=== PATIENT | female | born 1940 | race Caucasian/White ===

== ENCOUNTER 2020-01-27 08:54 | Inpatient (IN) | payer MEDICARE, OTHER ==
[~2020-01-27] VITALS: Ht 167.6 cm; Wt 135.3 kg
[2020-01-27] MEDS ORDERED: HYDROcodone-ACET 5/325MG TAB PO ONE (10:15)
[2020-01-27] MEDS ORDERED: MORPHINE SULF INJ 2 MG/ML SYRINGE 1ML IV ONE (12:15)
[2020-01-27] MEDS ORDERED: ONDANSETRON ODT 4 MG TAB PO ONE (12:15)
[2020-01-27] MEDS ORDERED: ONDANSETRON HCL 4 MG/2 ML VIAL IV ONE (13:00)
[2020-01-27 13:35] LABS: Basophils # (auto) 0.1 10 ^3/uL (0-0.2); Basophils % (auto) 0.5 % (0.0-2.0); Eosinophils # (auto) 0 10 ^3/uL (0-0.8); Eosinophils % (auto) 0.2 % (0.0-7.0); Hematocrit 45.1 % (36.0-46.0); Hemoglobin 14.9 g/dL (12.2-16.2); Lymphocytes % (auto) 6.4 % (10.0-50.0); Mean Corpuscular Hemoglobin 30.5 pg (28.0-32.0); Mean Corpuscular Volume 92.2 fL (80.0-100.0); Monocytes # (auto) 1.1 10 ^3/uL (0-1.3); Monocytes % (auto) 6.9 % (0.0-12.0); Neutrophils # (auto) 13.3 10 ^3/uL (1.6-8.6); Nucleated Red Blood Cells % 0.1 %; Platelet Count (auto) 231 10^3/uL (140-450); Red Blood Cells 4.89 10^6/uL (4.0-5.20); Red Cell Distribution Width 15.1 % (11.8-14.3); White Blood Cell 15.4 10^3/uL (4.4-10.8)
[2020-01-27 13:46] LABS: Albumin 3.5 g/dL (3.4-5.0); Calcium 8.9 mg/dL (8.5-10.1)
[2020-01-27 13:49] LABS: BUN/Creatinine Ratio 21.3; Bilirubin, Total 0.7 mg/dL (0.2-1.0); Total Protein 7.4 g/dL (6.4-8.2)
[2020-01-27 13:52] LABS: Potassium 2.9 mmol/L (3.5-5.1)
[2020-01-27 13:56] LABS: Partial Thromboplastin Time 47.4 sec (23.0-31.2)
[2020-01-27 13:59] LABS: INR 4.52 (0.9-1.15)
[2020-01-27] MEDS ORDERED: NITROGLYCERIN 0.4 MG SL TAB SL PRN (14:15)
[2020-01-27] MEDS: SODIUM CHLORIDE 0.9% 1,000 ML IV SCH (14:15)
[2020-01-27] MEDS ORDERED: POTASSIUM CHL 20 Meq TABLET PO ONE (14:15)
[2020-01-27] MEDS ORDERED: MORPHINE SULF INJ 2 MG/ML SYRINGE 1ML IV PRN ×2 (14:15→18:15)
[2020-01-27] MEDS ORDERED: POTASSIUM CHL 20MEQ/100ML 100 ML IV ONE (14:15)
--- NOTE | 2020-01-27 15:42 | NUR ---
MS admit from ER CAROLINAJETT admitted to tele/MS after SBAR received. Patient oriented to Ck daigle RN, unit, room, bed, and unit policies regarding patient care and visiting hours. Patient weighed by bedscale and encouraged to call if they need something. All questions and concerns addressed, patient verbalized understanding. Patient aaox4, pleasant and cooperative with diagnosis of right humerus fracture and disclocation.Admission assessment done and charted. Will continue to monitor patient
[2020-01-27 17:00] VITALS: BP 139/89
[2020-01-27 17:01] VITALS: BP 139/89
[2020-01-27] MEDS ORDERED: PRED-158 PO (18:08)
[2020-01-27] MEDS ORDERED: FURO40TA4 PO (18:08)
[2020-01-27] MEDS ORDERED: WARF3TAB22 PO (18:08)
[2020-01-27] MEDS ORDERED: POTA10TA51 PO (18:08)
[2020-01-27] MEDS ORDERED: LEVO25TA49 PO (18:08)
[2020-01-27] MEDS ORDERED: GABA-339 PO (18:08)
[2020-01-27] MEDS ORDERED: POTA10TA32 PO (18:26)
[2020-01-27] MEDS ORDERED: LEVO200T7 PO (18:26)
--- NOTE | 2020-01-27 19:00 | NUR ---
Opening Shift Note Assumed care of patient after receiving report. Patient is awake and alert with no S/S of distress/SOB or pain. Call light within reach, bed in lowest locked position, HOB semi fowlers. Instructed on POC and to call for assistance PRN, will continue to monitor for changes Q1hr and PRN.
--- NOTE | 2020-01-27 20:46 | NUR ---
Call from pharmacy Pharmacy called regarding INR of 4.52 and scheduled vitamin K fro 10:00 am on 01/28/20, pharmacy suggested one time dose of vitamin k. Will call
--- NOTE | 2020-01-27 20:55 | NUR ---
Called Dr. Matt regarding pharmacy's INR of 4.52. Left message with answering service. Awaiting call back for further instructions and additional orders. Will continue to monitor.
[2020-01-27 22:20] VITALS: BP 159/71
[2020-01-27 22:30] VITALS: BP 144/78
--- NOTE | 2020-01-27 22:30 | NUR ---
Elevated BP reassessment Patient had elevated BP of 159/71 and HR of 89, RN reassessed BP after position change with reading of 144/78 and HR 88. Patient is resting comfortably in bed at this time. No s/s of distress noted.
--- NOTE | 2020-01-27 23:29 | NUR ---
COVID swab collected and walked down to lab.
[2020-01-27] MEDS: MORPHINE SULF INJ 2 MG/ML SYRINGE 1ML IV PRN (23:50)
[2020-01-28] MEDS: SODIUM CHLORIDE 0.9% 1,000 ML IV SCH ×2 (04:53→18:04)
[2020-01-28 05:10] VITALS: BP 142/72
[2020-01-28 05:50] LABS: INR 4.73 (0.9-1.15)
[2020-01-28] MEDS: MORPHINE SULF INJ 2 MG/ML SYRINGE 1ML IV PRN ×2 (06:12→15:07)
--- NOTE | 2020-01-28 06:39 | NUR ---
[facility] Hospitalist Re: INR Received critical lab value for INR of 4.73, previously was 4.52. First scheduled dose of Vit. K at 10:00 01/28/20.
[2020-01-28 08:00] VITALS: BP 158/71
[2020-01-28] MEDS ORDERED: PHYTONADIONE(VitK) ORAL Susp 10mg/10ml(1mg/ml) PO SCH (10:00)
[2020-01-28 10:32] LABS: Basophils # (auto) 0.1 10 ^3/uL (0-0.2); Basophils % (auto) 0.6 % (0.0-2.0); Eosinophils # (auto) 0 10 ^3/uL (0-0.8); Eosinophils % (auto) 0.4 % (0.0-7.0); Hematocrit 37.3 % (36.0-46.0); Hemoglobin 12.4 g/dL (12.2-16.2); Lymphocytes # (auto) 1.3 10 ^3/uL (0.4-5.4); Lymphocytes % (auto) 12.1 % (10.0-50.0); Mean Corpuscular Hemoglobin 30.9 pg (28.0-32.0); Mean Corpuscular Hgb Conc. 33.2 g/dL (32.0-36.0); Mean Corpuscular Volume 93.1 fL (80.0-100.0); Monocytes # (auto) 0.9 10 ^3/uL (0-1.3); Monocytes % (auto) 8.5 % (0.0-12.0); Neutrophils # (auto) 8.1 10 ^3/uL (1.6-8.6); Neutrophils % (auto) 78.4 % (37.0-80.0); Nucleated Red Blood Cells % 0.1 %; Platelet Count (auto) 207 10^3/uL (140-450); Red Cell Distribution Width 15.1 % (11.8-14.3); White Blood Cell 10.3 10^3/uL (4.4-10.8)
[2020-01-28 10:42] LABS: Potassium 3.6 mmol/L (3.5-5.1)
[2020-01-28 10:48] LABS: BUN/Creatinine Ratio 17.9; Calcium 7.9 mg/dL (8.5-10.1)
[2020-01-28 11:05] LABS: INR 4.73 (0.9-1.15)
--- NOTE | 2020-01-28 11:10 | NUR ---
Critical INR Laboratory phoned about INR 12.73. Dr. Mcgee notified of result. No new order made by at this time.
[2020-01-28 12:00] VITALS: BP 148/70
--- NOTE | 2020-01-28 13:00 | NUR ---
AMY SOUZA APPLIED SPLINT TO PATIENT'S RIGHT SHOULDER WITH TENTER AND PATIENT TOLERATED IT WELL.
[2020-01-28 17:00] VITALS: BP 143/60
--- NOTE | 2020-01-28 19:25 | NUR ---
Received report from the Day Shift RN Ck. Initial assessment done. Pt. in bed resting with Right Upper arm cast and sling keeping this part immobile. Pt. alert, awake, oriented x 3-4 and is cooperative to the nsg. staff.
[2020-01-28 20:00] VITALS: BP 144/65
--- NOTE | 2020-01-28 20:00 | NUR ---
Complete assessment done.
[2020-01-28 22:00] VITALS: BP 144/65
--- NOTE | 2020-01-28 23:00 | NUR ---
Pt. calm, quiet and sleeping. IVF of NS @ 75 ml./hr. continuous @ the [facility] G # 20.
--- NOTE | 2020-01-29 02:00 | NUR ---
Pt. provided bedside nsg.care. Pt. keep safe and canoe inspector final bed. Call-light within pt.' reach.
--- NOTE | 2020-01-29 04:30 | NUR ---
Pt. sleeping and awakens intermittently. Pt. watching TV when awakened. Enjoys TV shows.
[2020-01-29 05:00] VITALS: BP 147/71
[2020-01-29 06:37] LABS: Basophils # (auto) 0.1 10 ^3/uL (0-0.2); Basophils % (auto) 0.5 % (0.0-2.0); Eosinophils # (auto) 0 10 ^3/uL (0-0.8); Eosinophils % (auto) 0.3 % (0.0-7.0); Hematocrit 33.9 % (36.0-46.0); Hemoglobin 11.5 g/dL (12.2-16.2); Lymphocytes % (auto) 8.5 % (10.0-50.0); Mean Corpuscular Hemoglobin 30.9 pg (28.0-32.0); Mean Corpuscular Hgb Conc. 33.7 g/dL (32.0-36.0); Mean Corpuscular Volume 91.5 fL (80.0-100.0); Monocytes # (auto) 1.1 10 ^3/uL (0-1.3); Neutrophils % (auto) 81.7 % (37.0-80.0); Platelet Count (auto) 191 10^3/uL (140-450); Red Blood Cells 3.71 10^6/uL (4.0-5.20); White Blood Cell 12.3 10^3/uL (4.4-10.8)
[2020-01-29 06:53] LABS: INR 1.25 (0.9-1.15)
[2020-01-29] MEDS: SODIUM CHLORIDE 0.9% 1,000 ML IV SCH (06:58)
[2020-01-29 07:02] LABS: Calcium 7.9 mg/dL (8.5-10.1); Potassium 3.7 mmol/L (3.5-5.1)
[2020-01-29 07:05] LABS: BUN/Creatinine Ratio 18.2
[2020-01-29 08:00] VITALS: BP 164/86
[2020-01-29 12:00] VITALS: BP 167/84
--- NOTE | 2020-01-29 16:57 | NUR ---
PATIENT DISCHARGED HOME WITH SON. PATIENT NON-TELEMETRY. ALL IV ACCESS DISCONTINUED. ALL DISCHARGE PAPERWORK SIGNED. ALL DISCHARGE INSTRUCTIONS GIVEN
== END 2020-01-29 16:55 | disposition home or self-care (01) | DRG 563 ==
LOC: EDBD 08:54 → ER 08:54 → OVERFLOW 08:55 → CENTRAL 16:27
PROVIDERS: ATTEND Internal Medicine Pulmonary Disease
DX: S42.251A Displaced fracture of greater tuberosity of right humerus, initial encounter for closed fracture (principal); M25.00 Hemarthrosis, unspecified joint; E87.6 Hypokalemia; W01.0XXA Fall on same level from slipping, tripping and stumbling without subsequent striking against object, initial encounter; I10 Essential (primary) hypertension; Z86.711 Personal history of pulmonary embolism; Y93.89 Activity, other specified; Y92.89 Other specified places as the place of occurrence of the external cause; Y99.8 Other external cause status; Z20.828 Contact with and (suspected) exposure to other viral communicable diseases; Z79.899 Other long term (current) drug therapy; E03.9 Hypothyroidism, unspecified
CPT/HCPCS: 36415; 71045; 73030; 73060; 73080; 73200; 80048; 80053; 85025; 85610; 85730; 86850; 86900; 86901; 93005; 93306; G0378; J2405; J3480

== ENCOUNTER 2020-02-29 17:02 | Inpatient (IN) | payer MEDICARE, OTHER ==
[~2020-02-29] VITALS: Ht 160 cm; Wt 128.9 kg
[~2020-02-29 17:02] MED LIST: FURO40TA4 PO; LEVO200T7 PO; POTA10TA32 PO; PRED-158 PO; WARF3TAB22 PO
[2020-02-29 20:30] LABS: Basophils # (auto) 0.1 10 ^3/uL (0-0.2); Basophils % (auto) 1.2 % (0.0-2.0); Eosinophils # (auto) 0.3 10 ^3/uL (0-0.8); Hematocrit 44.1 % (36.0-46.0); Hemoglobin 14.5 g/dL (12.2-16.2); Lymphocytes # (auto) 1.6 10 ^3/uL (0.4-5.4); Lymphocytes % (auto) 19.7 % (10.0-50.0); Mean Corpuscular Hemoglobin 30.3 pg (28.0-32.0); Mean Corpuscular Hgb Conc. 32.8 g/dL (32.0-36.0); Mean Corpuscular Volume 92.1 fL (80.0-100.0); Monocytes # (auto) 0.7 10 ^3/uL (0-1.3); Monocytes % (auto) 8.4 % (0.0-12.0); Neutrophils # (auto) 5.6 10 ^3/uL (1.6-8.6); Neutrophils % (auto) 67.7 % (37.0-80.0); Platelet Count (auto) 350 10^3/uL (140-450); Red Blood Cells 4.78 10^6/uL (4.0-5.20); Red Cell Distribution Width 16.4 % (11.8-14.3); White Blood Cell 8.3 10^3/uL (4.4-10.8)
[2020-02-29 20:47] LABS: INR 3.49 (0.9-1.15); Partial Thromboplastin Time 48.7 sec (23.0-31.2)
[2020-02-29 20:48] LABS: Albumin 2.7 g/dL (3.4-5.0); BUN/Creatinine Ratio 15.1; Calcium 8.8 mg/dL (8.5-10.1); Potassium 3.3 mmol/L (3.5-5.1)
[2020-02-29 20:51] LABS: Bilirubin, Total 0.9 mg/dL (0.2-1.0); Total Protein 7.9 g/dL (6.4-8.2)
[2020-02-29 22:00] VITALS: BP 142/65
[2020-02-29] MEDS ORDERED: PIPERACILLIN-TAZOB 3.375GM 100 ML IV ONE (22:30)
[2020-02-29] MEDS ORDERED: ACETAMINOPHEN 325 MG TAB PO PRN (23:30)
[2020-02-29] MEDS ORDERED: ONDANSETRON HCL 4 MG/2 ML VIAL IV PRN (23:30)
[2020-02-29] MEDS ORDERED: DOCUSATE SOD 100 MG CAP PO PRN (23:30)
[2020-03-01] MEDS: SODIUM CHLORIDE 0.9% 1,000 ML IV SCH ×3 (00:05→14:02)
--- NOTE | 2020-03-01 01:53 | NUR ---
MS admit from ER [place]OL[place]JETT admitted to tele/MS. Patient oriented to primary RN, unit, room, bed, and unit policies regarding patient care and visiting hours.Patient weighed by bed scale and encouraged to call if they need something. No s/s of distress/SOB. Fall and safety precautions in place. Call light within reach and able to use. Patient has personal wheelchair at bedside. Bedside commode placed at bedside. All questions and concerns addressed, patient verbalized understanding and in agreement. Will continue to monitor q1h and prn.
[2020-03-01 02:20] VITALS: BP 142/65
[2020-03-01] MEDS: HYDROcodone-ACET 5/325MG TAB PO PRN ×3 (02:26→15:25)
--- NOTE | 2020-03-01 03:00 | NUR ---
IV removal IV DC'd due to leaking with clean sterile technique, catheter fully intact. Pressure dressing applied to site. Patient tolerated well.
--- NOTE | 2020-03-01 03:20 | NUR ---
IV insertion IV access obtained, via clean sterile technique by inserting 22 gauge catheter at left forearm on first attempt. IV secured properly. No trauma to site. Patient tolerated well.
[2020-03-01] MEDS ORDERED: CYCL0.05 EACHEYE (03:37)
[2020-03-01 05:00] VITALS: BP 119/57
[2020-03-01] MEDS: PIPERACILLIN-TAZOB 3.375GM 100 ML IV SCH ×3 (05:29→21:46)
--- NOTE | 2020-03-01 07:35 | NUR ---
Opening shift note Assumed care of patient from NOC GABRIELLE Renee. Patient is Aox4 no s/s of SOB or distress noted. Bed is in lowest locked position, call light is within reach and side rails are up x2. Updated patient on plan of care and patient verbalized understanding. Will continue to monitor q1hr and PRN.
[2020-03-01 09:00] VITALS: BP_SYST 121; BP_SYST 134; BP_DIAS 71; BP_DIAS 87
[2020-03-01 09:51] LABS: Basophils # (auto) 0.1 10 ^3/uL (0-0.2); Eosinophils # (auto) 0.2 10 ^3/uL (0-0.8); Eosinophils % (auto) 2.8 % (0.0-7.0); Hematocrit 43.8 % (36.0-46.0); Hemoglobin 13.8 g/dL (12.2-16.2); Lymphocytes # (auto) 1.2 10 ^3/uL (0.4-5.4); Lymphocytes % (auto) 16.9 % (10.0-50.0); Mean Corpuscular Hgb Conc. 31.4 g/dL (32.0-36.0); Mean Corpuscular Volume 92.5 fL (80.0-100.0); Monocytes # (auto) 0.9 10 ^3/uL (0-1.3); Neutrophils # (auto) 4.6 10 ^3/uL (1.6-8.6); Neutrophils % (auto) 66.3 % (37.0-80.0); Nucleated Red Blood Cells % 0.1 %; Platelet Count (auto) 280 10^3/uL (140-450); Red Blood Cells 4.74 10^6/uL (4.0-5.20); Red Cell Distribution Width 16.8 % (11.8-14.3); White Blood Cell 6.9 10^3/uL (4.4-10.8)
[2020-03-01 10:10] LABS: BUN/Creatinine Ratio 17.5; Calcium 7.3 mg/dL (8.5-10.1); Potassium 3.1 mmol/L (3.5-5.1)
--- NOTE | 2020-03-01 11:30 | NUR ---
WOUND CARE NOTE: IN TO SEE PATIENT AT THIS TIME PER WOUND CARE CONSULT REQUEST. PATIENT RECENTLY ADMITTED TO [facility] WITH DIAGNOSIS OF R ARM HUMERUS FX, ABSCESS. PATIENT HAS CURRENT JOCELYNN SCORE OF 16. SKIN/WOUND CARE PLAN IMPLEMENTED. PATIENT STATES THAT SHE FRACTURED HER RIGHT ARM IN EARLY JANUARY. FRACTURE WAS NOT SURGICALLY REPAIRED, SHE WAS SENT HOME WITH A HARD PLASTIC BRACE/CAST. PATIENT WAS RENDERED WITH A WOUND IN THE RIGHT AXILLARY AREA FROM FRICTION/PRESSURE OF THE PLASTIC BRACE. REMOVED BRACE. PATIENT IS IN TOO MUCH PAIN TO MOVE ARM UP HIGH ENOUGH TO GET A GOOD ASSESSMENT OF AREA. PHOTOGRAPHED WOUND FOR REFERENCE. THERE IS DRAINAGE, APPEARS TO BE SEROUS. CLEANSED WITH WOUND CLEANSER, PATTED DRY WITH STERILE GAUZE. APPLIED THERAHONEY, OPTIFOAM, ABD PAD TO COVER, PROTECT, AND PAD AREA. THERE IS A SURGICAL/ORTHO CONSULT PENDING. RECOMMEND: EOD/PRN DRESSING CHANGE TO WOUND ON RIGHT AXILLA, SKIN/WOUND CARE PLAN, CONTINUED MONITORING BY WOUND CARE TEAM. Addendum: 03/01/20 at 1603 by Lizette Onofre RN Amended: Links added.
[2020-03-01 13:00] VITALS: BP_SYST 137; BP_SYST 147; BP_DIAS 58; BP_DIAS 86
--- NOTE | 2020-03-01 13:00 | NUR ---
Paged Pageadilson Reyes regarding pain. Awaiting call back.
[2020-03-01] MEDS ORDERED: POTASSIUM CHL 20 Meq TABLET PO ONE (13:30)
--- NOTE | 2020-03-01 16:00 | NUR ---
PT REPORTS THAT SHE HAS BEEN WALKING FINE IN ROOM AND MURO NOT NEED P.T. INTERVENTION.
--- NOTE | 2020-03-01 16:45 | NUR ---
paged Pageadilson Reyes regarding pain. Awaiting call back.
[2020-03-01 17:00] VITALS: BP 135/68
--- NOTE | 2020-03-01 17:00 | NUR ---
Pain assessment Patient stated "I am still in pain, I am still at 8/10". Will call for higher level of pain medication. Will continue to monitor.
--- NOTE | 2020-03-01 17:31 | NUR ---
paged economic analyst placed page to economic analyst hospitalist. Awaiting call back.
--- NOTE | 2020-03-01 17:33 | NUR ---
Received call back Received call back from Dr. Jurado. New order received. Will follow through.
[2020-03-01] MEDS ORDERED: MORPHINE SULF INJ 2 MG/ML SYRINGE 1ML IV ONE (17:45)
--- NOTE | 2020-03-01 18:14 | NUR ---
patient reassessment Patient was reassessed for pain, patient stated now being at a pain level of 5/10. Stated "I feel a lot better, I do not want something for pain right now, I want to eat." Will continue to monitor.
--- NOTE | 2020-03-01 19:15 | NUR ---
end of shift note Endorsed care to noc GABRIELLE Daley. No s/s of distress noted.
[2020-03-01 22:00] VITALS: BP 139/70
--- NOTE | 2020-03-02 03:10 | NUR ---
IV removal IV DC'd due to infiltration. Dc'd with sterile technique, catheter fully intact. Pressure dressing applied to site. Patient tolerated procedure well.
--- NOTE | 2020-03-02 03:18 | NUR ---
IV insertion IV access obtained, via clean sterile technique by inserting 22 gauge catheter at left hand after 1 attempt. IV secured properly. No trauma to site. Patient tolerated procedure well.
[2020-03-02 05:00] VITALS: BP 134/64
[2020-03-02] MEDS: PIPERACILLIN-TAZOB 3.375GM 100 ML IV SCH ×3 (06:19→21:33)
[2020-03-02] MEDS: SODIUM CHLORIDE 0.9% 1,000 ML IV SCH ×2 (06:33→18:06)
--- NOTE | 2020-03-02 07:25 | NUR ---
Opening shift note Assumed care of patient from NOC RN Edi. Patient is Aox4 no s/s of SOB or distress noted. Bed is in lowest locked position, call light is within reach and side rails are up x2. Updated patient on plan of care and patient verbalized understanding. Will continue to monitor q1hr and PRN.
[2020-03-02 09:00] VITALS: BP 128/71
--- NOTE | 2020-03-02 09:30 | NUR ---
Dressing Changed Dressing changed, patient tolerated procedure well. Will continue to monitor.
[2020-03-02 10:40] LABS: INR 2.85 (0.9-1.15)
[2020-03-02 10:41] LABS: BUN/Creatinine Ratio 11.6; Calcium 8.3 mg/dL (8.5-10.1); Magnesium 2.5 mg/dL (1.6-2.6); Potassium 3.3 mmol/L (3.5-5.1)
[2020-03-02 13:00] VITALS: BP 106/51
--- NOTE | 2020-03-02 13:43 | NUR ---
called Doctors office Called Dr. Liz office, per Susannah Matt is not in this office and to try to contact him at his other office. The number is [phone].
[2020-03-02] MEDS ORDERED: MORPHINE SULF INJ 2 MG/ML SYRINGE 1ML IV PRN (13:45)
--- NOTE | 2020-03-02 13:46 | NUR ---
Called office Called sports medicine and orthopedic office. Left message with [facility] receptionist assistant.
[2020-03-02 17:00] VITALS: BP 128/69
--- NOTE | 2020-03-02 17:36 | NUR ---
Orthopedics at bedside Louie with orthopedics at bedside assessing immobilizer. New orders received. Per Louie he will consult with Dr. Blevins regarding immobilizer.
--- NOTE | 2020-03-02 18:50 | NUR ---
End of shift note Endorsed care to NOC RN Rebekah. No s/s of distress noted.
--- NOTE | 2020-03-02 21:10 | NUR ---
Received a call from patients daughter "Bernie" who states pt wants to go home. F/u with pt who states "this place is scary" and does not want to stay. Pt is alert and oriented x4. Pt informed of risks and benefits of leaving. Pt verbalized understanding. CN notified, resource nurse notified. Pt was unable to sign AMA form so 2 nurses signed. IV removed, canula intact, site free from s/s. Pt is currently waiting for daughter to arrive to pick her up.
--- NOTE | 2020-03-02 22:00 | NUR ---
Pt taken out via w/c in stable condition to family, with all belongings. Pt is aware that is she is having recurring symptoms to go to the ER.
[2020-03-03] MEDS ORDERED: FUROSEMIDE 40 MG TAB PO SCH (10:00)
== END 2020-03-02 22:00 | disposition left against medical advice (07) | DRG 603 ==
LOC: ER 17:02 → OVERFLOW 17:03 → WEST WING 03-01 02:06
PROVIDERS: ADMIT Hospitalist; ATTEND Internal Medicine Pulmonary Disease
DX: L02.411 Cutaneous abscess of right axilla (principal); E03.9 Hypothyroidism, unspecified; E87.6 Hypokalemia; I11.0 Hypertensive heart disease with heart failure; I50.9 Heart failure, unspecified; J44.9 Chronic obstructive pulmonary disease, unspecified; Z86.711 Personal history of pulmonary embolism; Z90.710 Acquired absence of both cervix and uterus; Z90.49 Acquired absence of other specified parts of digestive tract; L89.899 Pressure ulcer of other site, unspecified stage; Z53.29 Procedure and treatment not carried out because of patient's decision for other reasons; S42.201D Unspecified fracture of upper end of right humerus, subsequent encounter for fracture with routine healing
CPT/HCPCS: 36415; 73060; 73200; 80048; 80053; 83605; 83735; 84443; 85025; 85610; 85730; 87040; 87081; 87205; G0378; J2543

== ENCOUNTER 2020-03-04 15:25 | Inpatient (IN) | payer MEDICARE, OTHER ==
[~2020-03-04] VITALS: Ht 160 cm; Wt 121.8 kg
[~2020-03-04 15:25] MED LIST changes: +CYCL0.05 EACHEYE
--- NOTE | 2020-03-04 15:45 | NUR ---
Direct Admit Note JETT FIGUEROA admitted to Telemetry/MS unit as a direct admit per MD order. Patient oriented to Ck daigle RN, unit, room, bed, and unit policies regarding patient care and visiting hours. Patient weighed by bedscale and encouraged to call if they need something. All questions and concerns addressed, patient verbalized understanding. MD notified of patients arrival and admit orders received.
[2020-03-04] MEDS ORDERED: VANCOMYCIN PER PHARMACY 0 MG IV SCH (16:00)
[2020-03-04] MEDS ORDERED: ALUM & MAG HYDROX-SIMETH LIQ(MAALOX) 30 ML PO PRN (16:00)
[2020-03-04] MEDS ORDERED: ACETAMINOPHEN 325 MG TAB PO PRN (16:00)
[2020-03-04] MEDS ORDERED: HYDROcodone-ACET 5/325MG TAB PO PRN (16:00)
[2020-03-04] MEDS ORDERED: HYDROmorphone HCL 2 MG/ML VL IV PRN (16:00)
[2020-03-04] MEDS ORDERED: MORPHINE SULF INJ 2 MG/ML SYRINGE 1ML IV PRN ×2 (16:00)
[2020-03-04] MEDS ORDERED: LORazepam 0.5 MG TAB PO PRN (16:00)
[2020-03-04] MEDS ORDERED: ONDANSETRON HCL 4 MG/2 ML VIAL IV PRN (16:00)
[2020-03-04] MEDS ORDERED: NITROGLYCERIN 0.4 MG SL TAB SL PRN (16:00)
--- NOTE | 2020-03-04 17:14 | NUR ---
WOUND CARE NOTE: Wound care in to see patient per wound care request regarding Rt arm wound. Patient is 79 y/o female with admitting diagnosis of Infected shoulder wound. Patient is resting in bed in Rm. 207. Patient is awake, alert and oriented. She's able to assist in turning and repositioning. Her Philippe score is 17. Patient has history of fracture to Rt. arm, she came in with plastic brace to Rt arm. Skin/wound assessment done with the assistance of patient's nurse, GABRIELLE Stover. GABRIELLE Stover removed patient's Rt arm brace to assess the skin/wound and apply hospital gown. Noted patient's Rt arm is edematous with large intact ecchymosis to Rt upper arm and multi serum filled blister to Rt. medial arm. Patient developed 5x1.5x0.6cm open ulceration to Rt axilla from Rt arm hard plastic brace. Wound is red with yellow slough, elif wound is red, moderate seropurulent drainage noted with foul odor noted. Cleansed wound with NS, took specimen for wound culture and given to director of labor relations for processing. Applied Thera honey gel to open Rt axilla wound, covered with 2x2 NS moistened gauze and covered with Opti foam dressing. Reapplied large Opti foam dressing to Rt upper arm and applied stockinette to protect skin from brace. Photograph of wound are taken for reference. Patient tolerated well. Charge nurse, GABRIELLE Saucedo at bedside inserting IV. Patient has an active surgical/ortho consult. RECOMMENDATION: Daily/PRN RT axilla wound per MD order, Dietary consult, redistribute pressure points with pillows, continue monitoring by wound care while patient is hospitalized. Addendum: 03/04/20 at 1827 by Ruthie Garcia RN Amended: Links added.
[2020-03-04 17:32] VITALS: BP 149/85
[2020-03-04] MEDS ORDERED: GABA-339 PO (17:46)
[2020-03-04] MEDS ORDERED: PERCOT PO (17:46)
[2020-03-04 18:06] LABS: Basophils # (auto) 0.1 10 ^3/uL (0-0.2); Basophils % (auto) 1.3 % (0.0-2.0); Eosinophils # (auto) 0.3 10 ^3/uL (0-0.8); Eosinophils % (auto) 4.2 % (0.0-7.0); Hematocrit 40.9 % (36.0-46.0); Hemoglobin 13.2 g/dL (12.2-16.2); Lymphocytes # (auto) 1.7 10 ^3/uL (0.4-5.4); Lymphocytes % (auto) 25.3 % (10.0-50.0); Mean Corpuscular Hemoglobin 29.7 pg (28.0-32.0); Mean Corpuscular Hgb Conc. 32.4 g/dL (32.0-36.0); Mean Corpuscular Volume 91.6 fL (80.0-100.0); Monocytes # (auto) 0.5 10 ^3/uL (0-1.3); Monocytes % (auto) 8.2 % (0.0-12.0); Platelet Count (auto) 357 10^3/uL (140-450); Red Blood Cells 4.46 10^6/uL (4.0-5.20); Red Cell Distribution Width 16.2 % (11.8-14.3); White Blood Cell 6.5 10^3/uL (4.4-10.8)
[2020-03-04 18:23] LABS: INR 2.55 (0.9-1.15); Partial Thromboplastin Time 38.3 sec (23.0-31.2)
[2020-03-04 18:24] LABS: Albumin 3.2 g/dL (3.4-5.0); Calcium 9.6 mg/dL (8.5-10.1); Magnesium 2.4 mg/dL (1.6-2.6); Potassium 3.1 mmol/L (3.5-5.1)
[2020-03-04 18:27] LABS: BUN/Creatinine Ratio 15.2; Bilirubin, Total 0.6 mg/dL (0.2-1.0); Phosphorus 2.8 mg/dL (2.5-4.90); Total Protein 7.2 g/dL (6.4-8.2)
[2020-03-04] MEDS: PIPERACILLIN-TAZOB 3.375GM 100 ML IV SCH (20:33)
[2020-03-04] MEDS: DAKINS HALF STR 0.25% (NaHypochlorite) 473 ML TOPICAL SOL TOP SCH (20:45)
[2020-03-04] MEDS ORDERED: POTASSIUM CHL 20 Meq TABLET PO ONE (21:30)
[2020-03-04 21:48] VITALS: BP 123/72
[2020-03-04] MEDS: SODIUM CHLOR 0.9% PF (SALINE LOCK) 10ML VIAL/SYR IV SCH (22:00)
[2020-03-04] MEDS ORDERED: VANCOMYCIN 1GM/250ML 250 ML IV ONE (23:00)
[2020-03-05] MEDS: PIPERACILLIN-TAZOB 3.375GM 100 ML IV SCH ×5 (02:38→23:38)
--- NOTE | 2020-03-05 04:06 | NUR ---
Spoke with Dr. Castro, gave order to insert tubbs catheter per patient request. Carried out.
--- NOTE | 2020-03-05 05:14 | NUR ---
Placed tubbs cath F14 in, pt tolerated well. No c/o pain. Drained 300+ cc of clear urine right away.
[2020-03-05 05:26] VITALS: BP 123/68
[2020-03-05] MEDS: SODIUM CHLOR 0.9% PF (SALINE LOCK) 10ML VIAL/SYR IV SCH ×3 (06:03→22:11)
[2020-03-05 06:05] LABS: INR 2.61 (0.9-1.15)
[2020-03-05 06:12] LABS: Potassium 3.6 mmol/L (3.5-5.1)
[2020-03-05 06:14] LABS: BUN/Creatinine Ratio 13.3
[2020-03-05 09:00] VITALS: BP 141/77
[2020-03-05] MEDS: LEVOTHYROXINE SODIUM 100 MCG TAB PO SCH (09:49)
[2020-03-05] MEDS: DAKINS HALF STR 0.25% (NaHypochlorite) 473 ML TOPICAL SOL TOP SCH (09:50)
--- NOTE | 2020-03-05 10:00 | NUR ---
Critical Vanco trough 43.2 Dr. Quiles was in and was notified of same. MD left no new orders.
[2020-03-05] MEDS ORDERED: POTASSIUM CHL 20 Meq TABLET PO ONE (10:30)
--- NOTE | 2020-03-05 11:05 | NUR ---
Dr. Quiles discussed with patient code status and patient wanted DNR/DNI.
[2020-03-05 11:43] LABS: Urine Bacteria FEW /hpf (None Seen); Urine Blood Negative /uL (Negative); Urine Mucus FEW (None Seen); Urine Specific Gravity 1.015 (1.001-1.035); Urine WBC 3 /hpf (0 - 5)
[2020-03-05 13:00] VITALS: BP 130/66
--- NOTE | 2020-03-05 15:14 | NUR ---
Midline Placement: Patient educated on need for midline placement. All risks and benefits explained and all questions and concerns addresses prior to procedure. 18g/8cm midline inserted via left basilic vein using Ultrasound. Sterile technique utilized. Blood return obtained from the single lumen and flushed easily with NS using proper technique. Midline secured with saline lock; biodisc and occlusive dressing applied. Primary RN RONA notified. Midline lot # [id number].
[2020-03-05 17:00] VITALS: BP 149/63
[2020-03-05] MEDS ORDERED: WARFARIN SODIUM 1 MG TAB PO ONE (17:00)
[2020-03-05] MEDS ORDERED: VANCOMYCIN 1GM/250ML 250 ML IV SCH (17:00)
--- NOTE | 2020-03-05 17:11 | NUR ---
Assessment Patient is an 79-year-old female who is alert and oriented. Prior to admission patient lived home alone and functioned independently. Patient informed me she can care for her own ADLs. Patient informed me she has a cane for home use. Advised patient there is a social service consult for SNF placement for IV abx, wound care, and physical therapy. Information and choice letter was given to patient. Patient requested [facility] that doctor recommended. Informed patient clinical information will be faxed to [facility]. Informed patient she has a right to participate in all discharge planning. Patient verbalized understanding and agreed to discharge plan. Faxed clinical information to [facility]. Per Michael with [facility] patient has been accepted to room 509 bed 1 accepting Md, Dr. Quiles. Michael is requesting a COVID TEST to be faxed to [facility] . Patient can go tonight once [facility] receives COVID. Michael can be contact at . Transportation will be arranged. Informed GABRIELLE Stover. Addendum: 03/05/20 at 1727 by ABI TERRY Amended: Links added.
[2020-03-05 17:35] VITALS: BP 143/63
--- NOTE | 2020-03-05 18:37 | NUR ---
Talked to Dinah of [facility] and she stated that they could not transport patient to SNF today. Will have her transported tomorrow at 11 am.
--- NOTE | 2020-03-05 19:27 | NUR ---
Opening Shift Note Assumed care of patient after receiving report. Patient is awake and alert with no S/S of distress/SOB or pain. Call light within reach, bed in lowest, locked position x2 side rails, HOB semi fowlers. Instructed on POC and to call for assist PRN, will continue to monitor for changes Q1hr and PRN.
[2020-03-05 22:00] VITALS: BP 131/65
[2020-03-06 05:00] VITALS: BP 133/70
[2020-03-06 05:17] LABS: INR 2.33 (0.9-1.15); Partial Thromboplastin Time 36.7 sec (23.0-31.2)
[2020-03-06] MEDS: PIPERACILLIN-TAZOB 3.375GM 100 ML IV SCH (05:35)
[2020-03-06] MEDS: SODIUM CHLOR 0.9% PF (SALINE LOCK) 10ML VIAL/SYR IV SCH (05:35)
[2020-03-06 09:00] VITALS: BP 130/68
[2020-03-06] MEDS: DAKINS HALF STR 0.25% (NaHypochlorite) 473 ML TOPICAL SOL TOP SCH (10:09)
[2020-03-06] MEDS: LEVOTHYROXINE SODIUM 100 MCG TAB PO SCH (10:23)
--- NOTE | 2020-03-06 11:12 | NUR ---
DISCHARGED ELIU YARBROUGH WITH FIRE HAWK NO SIGNS OF DISTRESS.
[2020-03-06 11:58] LABS: Sodium Urine 38 mmol/L (40-220)
== END 2020-03-06 11:20 | DRG 603 ==
LOC: CENTRAL 15:25 → TELE-CENTR 16:52
PROVIDERS: ADMIT Internal Medicine; ATTEND Internal Medicine
DX: L02.411 Cutaneous abscess of right axilla (principal); E87.6 Hypokalemia; E03.9 Hypothyroidism, unspecified; M32.9 Systemic lupus erythematosus, unspecified; N18.3 Chronic kidney disease, stage 3 (moderate); Z66 Do not resuscitate; Z86.711 Personal history of pulmonary embolism; J44.9 Chronic obstructive pulmonary disease, unspecified; I50.9 Heart failure, unspecified; Z90.710 Acquired absence of both cervix and uterus; Z20.828 Contact with and (suspected) exposure to other viral communicable diseases
CPT/HCPCS: 36415; 80048; 80053; 80061; 80202; 81001; 82306; 83036; 83735; 84100; 84133; 84300; 84439; 85025; 85610; 85730; 87040; 87081; 87086; 87205; 87426; 93005; G0378; J2543

== ENCOUNTER 2020-07-16 12:26 | Inpatient (IN) | payer MEDICARE, OTHER ==
[~2020-07-16] VITALS: Ht 160 cm; Wt 119.6 kg
[~2020-07-16 12:26] MED LIST changes: +GABA-339 PO; +PERCOT PO; -PRED-158 PO; +PRED10TA PO
[2020-07-16 13:58] LABS: Basophils # (auto) 0 10 ^3/uL (0-0.2); Basophils % (auto) 0.3 % (0.0-2.0); Eosinophils # (auto) 0 10 ^3/uL (0-0.8); Eosinophils % (auto) 0.4 % (0.0-7.0); Hematocrit 38.6 % (36.0-46.0); Hemoglobin 13.1 g/dL (12.2-16.2); Lymphocytes # (auto) 0.6 10 ^3/uL (0.4-5.4); Lymphocytes % (auto) 6.9 % (10.0-50.0); Mean Corpuscular Hemoglobin 29.6 pg (28.0-32.0); Mean Corpuscular Volume 87.2 fL (80.0-100.0); Monocytes # (auto) 0.7 10 ^3/uL (0-1.3); Neutrophils # (auto) 7.7 10 ^3/uL (1.6-8.6); Neutrophils % (auto) 84.4 % (37.0-80.0); Platelet Count (auto) 296 10^3/uL (140-450); Red Blood Cells 4.43 10^6/uL (4.0-5.20); Red Cell Distribution Width 16.9 % (11.8-14.3); White Blood Cell 9.1 10^3/uL (4.4-10.8)
[2020-07-16 14:19] LABS: Albumin 2.4 g/dL (3.4-5.0); Anion Gap 8 (5-15); Blood Urea Nitrogen 14 mg/dL (7-18); Calcium 8.3 mg/dL (8.5-10.1); Carbon Dioxide 25 mmol/L (21-32); Chloride 99 mmol/L (98-107); Glucose 107 mg/dL (74-106); Magnesium 2.1 mg/dL (1.6-2.6); Potassium 3.2 mmol/L (3.5-5.1); Sodium 132 mmol/L (136-145)
[2020-07-16 14:28] LABS: Alanine Aminotransferase 21 U/L (13-56); Alkaline Phosphatase 84 U/L (45-117); Aspartate Aminotransferase 27 U/L (15-37); BUN/Creatinine Ratio 17.7; Bilirubin, Total 0.4 mg/dL (0.2-1.0); GFR African American 90 mL/min; GFR Non-African American 74 mL/min; Lactate Dehydrogenase 260 U/L (84-246); Total Protein 7.2 g/dL (6.4-8.2)
[2020-07-16] MEDS ORDERED: POTASSIUM EFFERVESENT TAB 25 MEQ PO ONE (15:00)
[2020-07-16] MEDS ORDERED: MORPHINE SULF INJ 2 MG/ML SYRINGE 1ML IV PRN ×3 (16:00→23:15)
[2020-07-16] MEDS ORDERED: NITROGLYCERIN 0.4 MG SL TAB SL PRN ×2 (16:00→23:15)
[2020-07-16 22:15] VITALS: BP 136/67
[2020-07-16] MEDS ORDERED: REMDESIVIR PER PHARMACY 0 ML IV SCH (23:15)
[2020-07-16] MEDS ORDERED: ACETAMINOPHEN 500 MG TAB PO PRN (23:15)
[2020-07-16] MEDS ORDERED: ALUM & MAG HYDROX-SIMETH LIQ(MAALOX) 30 ML PO PRN (23:15)
[2020-07-16] MEDS ORDERED: ONDANSETRON HCL 4 MG/2 ML VIAL IV PRN (23:15)
[2020-07-16] MEDS ORDERED: DOCUSATE SOD 100 MG CAP PO PRN (23:15)
[2020-07-17] VITALS: BP 136/67
[2020-07-17] MEDS: DOXYCYCLINE 100MG/250ML 250 ML IV SCH ×3 (00:34→22:00)
[2020-07-17 03:21] LABS: Basophils # (auto) 0.1 10 ^3/uL (0-0.2); Basophils % (auto) 0.7 % (0.0-2.0); Eosinophils # (auto) 0.4 10 ^3/uL (0-0.8); Eosinophils % (auto) 3.6 % (0.0-7.0); Hematocrit 39.6 % (36.0-46.0); Hemoglobin 13.7 g/dL (12.2-16.2); Lymphocytes # (auto) 0.8 10 ^3/uL (0.4-5.4); Lymphocytes % (auto) 8.3 % (10.0-50.0); Mean Corpuscular Hemoglobin 30.2 pg (28.0-32.0); Mean Corpuscular Hgb Conc. 34.6 g/dL (32.0-36.0); Mean Corpuscular Volume 87.2 fL (80.0-100.0); Monocytes # (auto) 0.9 10 ^3/uL (0-1.3); Neutrophils # (auto) 7.7 10 ^3/uL (1.6-8.6); Neutrophils % (auto) 78.4 % (37.0-80.0); Nucleated Red Blood Cells % 0.2 %; Platelet Count (auto) 352 10^3/uL (140-450); Red Blood Cells 4.54 10^6/uL (4.0-5.20); Red Cell Distribution Width 17.2 % (11.8-14.3); White Blood Cell 9.8 10^3/uL (4.4-10.8)
[2020-07-17 03:53] LABS: Albumin 2.4 g/dL (3.4-5.0); Calcium 8.6 mg/dL (8.5-10.1); Magnesium 1.8 mg/dL (1.6-2.6); Potassium 4.3 mmol/L (3.5-5.1)
[2020-07-17 04:00] LABS: Cholesterol 127 mg/dL (< 200); HDL Cholesterol 26 mg/dL (40-59); LDL Cholesterol 87 mg/dL (< 100); Triglycerides 170 mg/dL (< 150)
[2020-07-17 04:13] LABS: CRP High Sensitivity 18.3 mg/dL (< 0.3)
[2020-07-17 04:23] LABS: Bilirubin, Total 0.6 mg/dL (0.2-1.0); Total Protein 7.5 g/dL (6.4-8.2)
[2020-07-17] MEDS: SODIUM CHLOR 0.9% PF (SALINE LOCK) 10ML VIAL/SYR IV SCH ×3 (06:00→22:00)
[2020-07-17] MEDS: FUROSEMIDE 20 MG/2 ML VIAL IV SCH ×2 (06:00→18:17)
[2020-07-17] MEDS: LEVOTHYROXINE SODIUM 100 MCG TAB PO SCH (07:00)
[2020-07-17 07:13] LABS: INR 7.95 (0.9-1.15)
[2020-07-17 07:29] LABS: Basophils # (auto) 0 10 ^3/uL (0-0.2); Basophils % (auto) 0.5 % (0.0-2.0); Eosinophils # (auto) 0.1 10 ^3/uL (0-0.8); Eosinophils % (auto) 1.3 % (0.0-7.0); Hematocrit 36.2 % (36.0-46.0); Hemoglobin 12.7 g/dL (12.2-16.2); Lymphocytes # (auto) 0.8 10 ^3/uL (0.4-5.4); Lymphocytes % (auto) 10.3 % (10.0-50.0); Mean Corpuscular Hemoglobin 30.2 pg (28.0-32.0); Mean Corpuscular Volume 86.4 fL (80.0-100.0); Monocytes # (auto) 0.8 10 ^3/uL (0-1.3); Monocytes % (auto) 9.8 % (0.0-12.0); Neutrophils # (auto) 6.1 10 ^3/uL (1.6-8.6); Neutrophils % (auto) 78.1 % (37.0-80.0); Platelet Count (auto) 317 10^3/uL (140-450); Red Blood Cells 4.19 10^6/uL (4.0-5.20); White Blood Cell 7.8 10^3/uL (4.4-10.8)
[2020-07-17 07:37] LABS: Albumin 2.3 g/dL (3.4-5.0); Calcium 8.1 mg/dL (8.5-10.1); Magnesium 2.2 mg/dL (1.6-2.6); Potassium 3.2 mmol/L (3.5-5.1)
[2020-07-17 07:40] LABS: BUN/Creatinine Ratio 22.1; Bilirubin, Total 0.5 mg/dL (0.2-1.0); Phosphorus 2.5 mg/dL (2.5-4.90); Total Protein 6.9 g/dL (6.4-8.2)
[2020-07-17 07:46] LABS: Partial Thromboplastin Time 68.6 sec (23.0-31.2)
[2020-07-17 07:52] LABS: INR 7.9 (0.9-1.15)
[2020-07-17 08:00] VITALS: BP 117/63
[2020-07-17 08:18] LABS: Urine Bacteria MANY /hpf (None Seen); Urine Blood 2+ /uL (Negative); Urine Hyaline Cast FEW /lpf (0 - 2); Urine Mucus FEW (None Seen); Urine Specific Gravity 1.023 (1.001-1.035); Urine WBC 92 /hpf (0 - 5)
[2020-07-17 08:44] LABS: Amphetamine Screen, Urine NEGATIVE (NEGATIVE); Barbiturate Scree,Urine NEGATIVE (NEGATIVE); Benzodiazephine Screen, Urine NEGATIVE (NEGATIVE); Cannabinoid Screen, Urine NEGATIVE (NEGATIVE); Cocaine Screen, Urine NEGATIVE (NEGATIVE); Opiate Scree,Urine NEGATIVE (NEGATIVE); Phencyclidine Screen, Urine NEGATIVE (NEGATIVE)
[2020-07-17] MEDS ORDERED: IVERMECTIN 3 MG TAB PO ONE (10:00)
[2020-07-17] MEDS: FAMOTIDINE (10MG/ML) 2ML VL IV SCH ×2 (10:00→22:00)
[2020-07-17] MEDS: DexAMETHasone SOD PHOS 10MG/1ML VIAL INJ IV SCH (10:42)
[2020-07-17] MEDS: ASCORBIC ACID 1,000 MG TAB PO SCH (10:43)
[2020-07-17] MEDS: ZINC SULFATE 220mg CAP or TAB PO SCH (10:43)
[2020-07-17] MEDS: POTASSIUM CHL 20 Meq TABLET PO SCH (10:43)
[2020-07-17] MEDS: CHOLECALCIFEROL (VITD3) 2,000 UNIT CAP/TAB PO SCH (10:44)
[2020-07-17] MEDS: BUDESONIDE (INHALATION) 180 MCG IH IN SCH ×2 (13:30→19:17)
[2020-07-17] MEDS ORDERED: PHYTONADIONE(VitK) ORAL Susp 10mg/10ml(1mg/ml) PO ONE (14:45)
[2020-07-17] MEDS: ALBUTEROL SULF HFA 90MCG INH 200DOSE IN PRN ×2 (15:42→19:17)
[2020-07-17 16:00] VITALS: BP 106/63
[2020-07-18] VITALS: BP 120/71
[2020-07-18] MEDS: FUROSEMIDE 20 MG/2 ML VIAL IV SCH ×2 (06:00→18:00)
[2020-07-18] MEDS: SODIUM CHLOR 0.9% PF (SALINE LOCK) 10ML VIAL/SYR IV SCH ×3 (06:00→21:59)
[2020-07-18] MEDS: LEVOTHYROXINE SODIUM 100 MCG TAB PO SCH (07:00)
[2020-07-18 07:02] LABS: Basophils # (auto) 0 10 ^3/uL (0-0.2); Basophils % (auto) 0.2 % (0.0-2.0); Eosinophils # (auto) 0 10 ^3/uL (0-0.8); Eosinophils % (auto) 0.1 % (0.0-7.0); Hematocrit 36.7 % (36.0-46.0); Hemoglobin 12.9 g/dL (12.2-16.2); Lymphocytes # (auto) 0.6 10 ^3/uL (0.4-5.4); Lymphocytes % (auto) 7.9 % (10.0-50.0); Mean Corpuscular Hemoglobin 30.5 pg (28.0-32.0); Mean Corpuscular Hgb Conc. 35.1 g/dL (32.0-36.0); Mean Corpuscular Volume 86.8 fL (80.0-100.0); Monocytes # (auto) 0.5 10 ^3/uL (0-1.3); Monocytes % (auto) 6.4 % (0.0-12.0); Neutrophils # (auto) 6.3 10 ^3/uL (1.6-8.6); Neutrophils % (auto) 85.4 % (37.0-80.0); Platelet Count (auto) 393 10^3/uL (140-450); Red Blood Cells 4.22 10^6/uL (4.0-5.20); White Blood Cell 7.4 10^3/uL (4.4-10.8)
[2020-07-18 07:22] LABS: Albumin 2.4 g/dL (3.4-5.0)
[2020-07-18 07:24] LABS: INR 2.15 (0.9-1.15)
[2020-07-18 08:00] VITALS: BP 117/63
[2020-07-18] MEDS: BUDESONIDE (INHALATION) 180 MCG IH IN SCH ×2 (08:10→19:35)
[2020-07-18] MEDS: ALBUTEROL SULF HFA 90MCG INH 200DOSE IN PRN ×2 (08:10→19:35)
[2020-07-18] MEDS: FAMOTIDINE (10MG/ML) 2ML VL IV SCH ×2 (09:37→21:59)
[2020-07-18] MEDS: DOXYCYCLINE 100MG/250ML 250 ML IV SCH ×2 (09:37→21:59)
[2020-07-18] MEDS: ZINC SULFATE 220mg CAP or TAB PO SCH (09:37)
[2020-07-18] MEDS: DexAMETHasone SOD PHOS 10MG/1ML VIAL INJ IV SCH (09:37)
[2020-07-18] MEDS: ASCORBIC ACID 1,000 MG TAB PO SCH (09:38)
[2020-07-18] MEDS: CHOLECALCIFEROL (VITD3) 2,000 UNIT CAP/TAB PO SCH (09:38)
[2020-07-18] MEDS: POTASSIUM CHL 20 Meq TABLET PO SCH (09:38)
[2020-07-18] MEDS ORDERED: REMDESIVIR 200 MG in NS 210ml LOADING DOSE ADULT IV ONE (15:00)
[2020-07-18 16:00] VITALS: BP 121/64
[2020-07-18] MEDS ORDERED: WARFARIN SODIUM 1 MG TAB PO ONE (17:00)
[2020-07-19] VITALS: BP 105/55
[2020-07-19 05:00] VITALS: BP 92/59
[2020-07-19] MEDS: FUROSEMIDE 20 MG/2 ML VIAL IV SCH ×2 (06:00→18:27)
[2020-07-19] MEDS: LEVOTHYROXINE SODIUM 100 MCG TAB PO SCH (06:28)
[2020-07-19] MEDS: SODIUM CHLOR 0.9% PF (SALINE LOCK) 10ML VIAL/SYR IV SCH ×3 (06:28→22:29)
[2020-07-19] MEDS: BUDESONIDE (INHALATION) 180 MCG IH IN SCH ×2 (07:35→19:48)
[2020-07-19 07:53] LABS: INR 1.59 (0.9-1.15)
[2020-07-19 08:00] VITALS: BP 135/67
[2020-07-19 08:21] LABS: Albumin 2.5 g/dL (3.4-5.0); Calcium 8.4 mg/dL (8.5-10.1); Potassium 3.6 mmol/L (3.5-5.1)
[2020-07-19 08:24] LABS: BUN/Creatinine Ratio 26.8
[2020-07-19 08:28] LABS: Bilirubin, Total 0.5 mg/dL (0.2-1.0)
[2020-07-19] MEDS: FAMOTIDINE (10MG/ML) 2ML VL IV SCH ×2 (10:31→22:00)
[2020-07-19] MEDS: DexAMETHasone SOD PHOS 10MG/1ML VIAL INJ IV SCH (10:32)
[2020-07-19] MEDS: ASCORBIC ACID 1,000 MG TAB PO SCH (10:32)
[2020-07-19] MEDS: ZINC SULFATE 220mg CAP or TAB PO SCH (10:32)
[2020-07-19] MEDS: CHOLECALCIFEROL (VITD3) 2,000 UNIT CAP/TAB PO SCH (10:32)
[2020-07-19] MEDS: DOXYCYCLINE 100MG/250ML 250 ML IV SCH ×2 (10:32→22:29)
[2020-07-19] MEDS: POTASSIUM CHL 20 Meq TABLET PO SCH (10:32)
[2020-07-19] MEDS ORDERED: cefTRIAXone 1GM/50ML D5W 50 ML IV ONE (14:45)
[2020-07-19 16:00] VITALS: BP 106/65
[2020-07-19] MEDS: REMDESIVIR 100mg 100 MG in SODIUM CHL 0.9% 230 ML IV SCH (16:10)
[2020-07-19] MEDS: WARFARIN SODIUM 2 MG TAB PO ONE ×2 (17:00→18:28)
[2020-07-19] MEDS: ALBUTEROL SULF HFA 90MCG INH 200DOSE IN PRN (19:49)
[2020-07-20 00:09] VITALS: BP 115/64
[2020-07-20] MEDS: FUROSEMIDE 20 MG/2 ML VIAL IV SCH ×2 (06:00→17:57)
[2020-07-20] MEDS: SODIUM CHLOR 0.9% PF (SALINE LOCK) 10ML VIAL/SYR IV SCH ×3 (06:00→21:43)
[2020-07-20] MEDS: LEVOTHYROXINE SODIUM 100 MCG TAB PO SCH (06:35)
[2020-07-20 06:47] LABS: Basophils # (auto) 0 10 ^3/uL (0-0.2); Basophils % (auto) 0.1 % (0.0-2.0); Eosinophils # (auto) 0 10 ^3/uL (0-0.8); Eosinophils % (auto) 0.1 % (0.0-7.0); Hematocrit 40.3 % (36.0-46.0); Hemoglobin 13.2 g/dL (12.2-16.2); Lymphocytes # (auto) 0.7 10 ^3/uL (0.4-5.4); Lymphocytes % (auto) 8.6 % (10.0-50.0); Mean Corpuscular Hemoglobin 29.4 pg (28.0-32.0); Mean Corpuscular Hgb Conc. 32.7 g/dL (32.0-36.0); Mean Corpuscular Volume 89.9 fL (80.0-100.0); Monocytes # (auto) 0.6 10 ^3/uL (0-1.3); Monocytes % (auto) 7.1 % (0.0-12.0); Neutrophils # (auto) 6.9 10 ^3/uL (1.6-8.6); Neutrophils % (auto) 84.1 % (37.0-80.0); Nucleated Red Blood Cells % 0.1 %; Platelet Count (auto) 439 10^3/uL (140-450); Red Blood Cells 4.49 10^6/uL (4.0-5.20); Red Cell Distribution Width 17.5 % (11.8-14.3); White Blood Cell 8.2 10^3/uL (4.4-10.8)
[2020-07-20 08:00] VITALS: BP 130/72
[2020-07-20] MEDS: ZINC SULFATE 220mg CAP or TAB PO SCH (08:40)
[2020-07-20] MEDS: CHOLECALCIFEROL (VITD3) 2,000 UNIT CAP/TAB PO SCH (08:41)
[2020-07-20] MEDS: ASCORBIC ACID 1,000 MG TAB PO SCH (08:41)
[2020-07-20] MEDS: POTASSIUM CHL 20 Meq TABLET PO SCH (08:49)
[2020-07-20] MEDS: cefTRIAXone 1GM/50ML D5W 50 ML IV SCH (09:00)
[2020-07-20] MEDS: FAMOTIDINE (10MG/ML) 2ML VL IV SCH ×2 (10:00→21:43)
[2020-07-20] MEDS: DexAMETHasone SOD PHOS 10MG/1ML VIAL INJ IV SCH (10:00)
[2020-07-20] MEDS: BUDESONIDE (INHALATION) 180 MCG IH IN SCH ×2 (10:00→19:44)
[2020-07-20 10:52] LABS: Albumin 2.6 g/dL (3.4-5.0); Calcium 8.4 mg/dL (8.5-10.1); Potassium 3.7 mmol/L (3.5-5.1)
[2020-07-20 10:59] LABS: BUN/Creatinine Ratio 23.9; Bilirubin, Total 0.5 mg/dL (0.2-1.0); CRP High Sensitivity 4.27 mg/dL (< 0.3); Total Protein 7.6 g/dL (6.4-8.2)
[2020-07-20 11:22] LABS: INR 1.7 (0.9-1.15)
[2020-07-20] MEDS: DOXYCYCLINE 100MG/250ML 250 ML IV SCH ×2 (11:55→21:43)
[2020-07-20] MEDS: REMDESIVIR 100mg 100 MG in SODIUM CHL 0.9% 230 ML IV SCH (15:30)
[2020-07-20 15:38] VITALS: BP 131/52
[2020-07-20] MEDS ORDERED: WARFARIN SODIUM 2 MG TAB PO ONE (17:00)
[2020-07-20] MEDS: ALBUTEROL SULF HFA 90MCG INH 200DOSE IN PRN (19:44)
[2020-07-21] VITALS: BP 114/56
[2020-07-21 05:40] LABS: Albumin 2.5 g/dL (3.4-5.0); BUN/Creatinine Ratio 32.1; Calcium 8.3 mg/dL (8.5-10.1)
[2020-07-21 05:42] LABS: INR 1.85 (0.9-1.15)
[2020-07-21 05:44] LABS: Bilirubin, Total 0.6 mg/dL (0.2-1.0); Total Protein 6.9 g/dL (6.4-8.2)
[2020-07-21 05:57] LABS: Potassium 5.2 mmol/L (3.5-5.1)
[2020-07-21] MEDS: FUROSEMIDE 20 MG/2 ML VIAL IV SCH (06:14)
[2020-07-21] MEDS: SODIUM CHLOR 0.9% PF (SALINE LOCK) 10ML VIAL/SYR IV SCH ×3 (06:14→22:03)
[2020-07-21] MEDS: LEVOTHYROXINE SODIUM 100 MCG TAB PO SCH (06:15)
[2020-07-21] MEDS: BUDESONIDE (INHALATION) 180 MCG IH IN SCH ×2 (07:40→18:55)
[2020-07-21] MEDS: ALBUTEROL SULF HFA 90MCG INH 200DOSE IN PRN ×2 (07:40→18:55)
[2020-07-21 08:00] VITALS: BP 123/63
[2020-07-21] MEDS: cefTRIAXone 1GM/50ML D5W 50 ML IV SCH (09:15)
[2020-07-21] MEDS: ASCORBIC ACID 1,000 MG TAB PO SCH (09:19)
[2020-07-21] MEDS: DexAMETHasone SOD PHOS 10MG/1ML VIAL INJ IV SCH (09:19)
[2020-07-21] MEDS: CHOLECALCIFEROL (VITD3) 2,000 UNIT CAP/TAB PO SCH (09:19)
[2020-07-21] MEDS: ZINC SULFATE 220mg CAP or TAB PO SCH (09:19)
[2020-07-21] MEDS: POTASSIUM CHL 20 Meq TABLET PO SCH (09:20)
[2020-07-21] MEDS: FAMOTIDINE (10MG/ML) 2ML VL IV SCH ×2 (09:21→22:00)
[2020-07-21] MEDS: DOXYCYCLINE 100MG/250ML 250 ML IV SCH (10:18)
[2020-07-21] MEDS: REMDESIVIR 100mg 100 MG in SODIUM CHL 0.9% 230 ML IV SCH (15:55)
[2020-07-21 16:00] VITALS: BP 141/73
[2020-07-21] MEDS ORDERED: WARFARIN SODIUM 2 MG TAB PO ONE (17:00)
[2020-07-21] MEDS: ENOXAPARIN SOD 40 MG/0.4 ML SYRINGE SC SCH (22:04)
[2020-07-22 00:24] VITALS: BP 119/62
[2020-07-22] MEDS: SODIUM CHLOR 0.9% PF (SALINE LOCK) 10ML VIAL/SYR IV SCH ×3 (06:09→21:44)
[2020-07-22] MEDS: LEVOTHYROXINE SODIUM 100 MCG TAB PO SCH (06:31)
[2020-07-22 08:00] VITALS: BP 127/68
[2020-07-22 08:03] LABS: Basophils # (auto) 0 10 ^3/uL (0-0.2); Basophils % (auto) 0.4 % (0.0-2.0); Eosinophils # (auto) 0 10 ^3/uL (0-0.8); Eosinophils % (auto) 0.3 % (0.0-7.0); Hemoglobin 12.9 g/dL (12.2-16.2); Red Cell Distribution Width 17.6 % (11.8-14.3); White Blood Cell 12.1 10^3/uL (4.4-10.8)
[2020-07-22 08:06] LABS: Lymphocytes # (auto) 1.7 10 ^3/uL (0.4-5.4); Mean Corpuscular Hemoglobin 30.3 pg (28.0-32.0); Mean Corpuscular Volume 86.6 fL (80.0-100.0); Monocytes # (auto) 0.6 10 ^3/uL (0-1.3); Monocytes % (auto) 4.8 % (0.0-12.0); Neutrophils # (auto) 9.8 10 ^3/uL (1.6-8.6); Neutrophils % (auto) 80.5 % (37.0-80.0); Platelet Count (auto) 508 10^3/uL (140-450); Red Blood Cells 4.27 10^6/uL (4.0-5.20)
[2020-07-22] MEDS: cefTRIAXone 1GM/50ML D5W 50 ML IV SCH (08:10)
[2020-07-22] MEDS: DexAMETHasone SOD PHOS 10MG/1ML VIAL INJ IV SCH (08:10)
[2020-07-22] MEDS: FAMOTIDINE (10MG/ML) 2ML VL IV SCH ×2 (08:10→21:44)
[2020-07-22] MEDS: ASCORBIC ACID 1,000 MG TAB PO SCH (08:11)
[2020-07-22] MEDS: ENOXAPARIN SOD 40 MG/0.4 ML SYRINGE SC SCH ×2 (08:11→21:45)
[2020-07-22] MEDS: CHOLECALCIFEROL (VITD3) 2,000 UNIT CAP/TAB PO SCH (08:11)
[2020-07-22] MEDS: ZINC SULFATE 220mg CAP or TAB PO SCH (08:11)
[2020-07-22 08:14] LABS: INR 1.66 (0.9-1.15)
[2020-07-22 08:29] LABS: Potassium 3.7 mmol/L (3.5-5.1)
[2020-07-22 08:43] LABS: Albumin 2.6 g/dL (3.4-5.0); BUN/Creatinine Ratio 29.1; Bilirubin, Total 0.6 mg/dL (0.2-1.0); Calcium 8.1 mg/dL (8.5-10.1); Total Protein 7.2 g/dL (6.4-8.2)
[2020-07-22] MEDS: POTASSIUM CHL 20 Meq TABLET PO SCH (09:36)
[2020-07-22 15:54] VITALS: BP 119/67
[2020-07-22] MEDS: REMDESIVIR 100mg 100 MG in SODIUM CHL 0.9% 230 ML IV SCH (16:16)
[2020-07-22] MEDS ORDERED: WARFARIN SODIUM 1 MG TAB PO ONE (17:00)
[2020-07-22] MEDS: BUDESONIDE (INHALATION) 180 MCG IH IN SCH (19:39)
[2020-07-22] MEDS: ALBUTEROL SULF HFA 90MCG INH 200DOSE IN PRN (19:39)
[2020-07-23] VITALS: BP 114/51
[2020-07-23] MEDS: SODIUM CHLOR 0.9% PF (SALINE LOCK) 10ML VIAL/SYR IV SCH ×2 (06:00→13:11)
[2020-07-23] MEDS: LEVOTHYROXINE SODIUM 100 MCG TAB PO SCH (06:40)
[2020-07-23] MEDS: BUDESONIDE (INHALATION) 180 MCG IH IN SCH (06:43)
[2020-07-23 06:55] LABS: INR 1.75 (0.9-1.15); Partial Thromboplastin Time 35.6 sec (23.0-31.2)
[2020-07-23 08:00] VITALS: BP 122/63
[2020-07-23] MEDS: DexAMETHasone SOD PHOS 10MG/1ML VIAL INJ IV SCH (10:06)
[2020-07-23] MEDS: FAMOTIDINE (10MG/ML) 2ML VL IV SCH (10:06)
[2020-07-23] MEDS: ENOXAPARIN SOD 40 MG/0.4 ML SYRINGE SC SCH (10:06)
[2020-07-23] MEDS: cefTRIAXone 1GM/50ML D5W 50 ML IV SCH (10:06)
[2020-07-23] MEDS: POTASSIUM CHL 20 Meq TABLET PO SCH (10:07)
[2020-07-23] MEDS: ASCORBIC ACID 1,000 MG TAB PO SCH (10:07)
[2020-07-23] MEDS: CHOLECALCIFEROL (VITD3) 2,000 UNIT CAP/TAB PO SCH (10:07)
[2020-07-23] MEDS: ZINC SULFATE 220mg CAP or TAB PO SCH (10:07)
[2020-07-23 15:55] VITALS: BP 111/57
[2020-07-23] MEDS ORDERED: WARFARIN SODIUM 1 MG TAB PO ONE (17:00)
[2020-07-23 17:38] VITALS: BP 111/57
== END 2020-07-23 18:40 | disposition home health service (06) | DRG 177 ==
LOC: ER 12:26 → TELE 12:27 → TELE-WESTW 22:15
PROVIDERS: ADMIT Hospitalist; ATTEND Internal Medicine
PROC: XW033E5 Introduction of Remdesivir Anti-infective into Peripheral Vein, Percutaneous Approach, New Technology Group 5 (ICD-10-PCS; principal; 2020-07-18)
PROC: 05HC33Z Insertion of Infusion Device into Left Basilic Vein, Percutaneous Approach (ICD-10-PCS; 2020-07-20)
PROC: B54NZZA Ultrasonography of Left Upper Extremity Veins, Guidance (ICD-10-PCS; 2020-07-20)
DX: U07.1 COVID-19 (principal); J12.82 Pneumonia due to coronavirus disease 2019; J96.01 Acute respiratory failure with hypoxia; D68.59 Other primary thrombophilia; Z68.42 Body mass index [BMI] 45.0-49.9, adult; D89.834 Cytokine release syndrome, grade 4; E03.9 Hypothyroidism, unspecified; E87.6 Hypokalemia; E78.5 Hyperlipidemia, unspecified; M79.7 Fibromyalgia; E66.01 Morbid (severe) obesity due to excess calories; M41.9 Scoliosis, unspecified; Z79.01 Long term (current) use of anticoagulants; Z90.710 Acquired absence of both cervix and uterus; Z86.711 Personal history of pulmonary embolism; I10 Essential (primary) hypertension
CPT/HCPCS: 36415; 36600; 71045; 80053; 80061; 80307; 81001; 82040; 82306; 82565; 82728; 82805; 83036; 83605; 83615; 83735; 84100; 84443; 84484; 85025; 85379; 85610; 85730; 86141; 87040; 87086; 87088; 87186; 87426; 93005; 94640; 97116; 97530; G0378; J0696; J1100; J3490